=== PATIENT | female | born 1980 | race Caucasian/White ===

== ENCOUNTER → 2024-10-29 | Day surgery (SDC) | payer OTHER ==
[~2024-10-29] MED LIST: CEFDINIR300 MG PO; FENTANYL CITRATE/PF 100MCG/2 ML INJ ONE; IBUPROFEN200 MG PO; LIDOCAINE HCL 2% LOCAL INJ 5 ML SDV VIAL INJ ONE; MIDAZOLAM HCL 2 MG/2 ML VIAL ONE; OMEPRAZOLE40 MG PO; PROPOFOL IV EMULSION 10 MG/ML 20 ML VIAL ONE; PROPOFOL IV EMULSION 50 ML IV ONE; PYRIDIUM100 MG PO; TYLENOL WITH C1 EACH PO
[2024-10-29] MEDS: LACTATED RINGER'S 1,000 ML ONE (07:28)
[2024-10-29 10:15] VITALS: BP 121/85; PULSE 84; RESP 16; TEMP 97.1; O2SAT 100
== END | disposition home or self-care (01) ==
LOC: OR 07:05
PROVIDERS: ATTEND Internal Medicine Gastroenterology
DX: K29.70 Gastritis, unspecified, without bleeding (principal); Z86.0100 Personal history of colon polyps, unspecified; K20.90 Esophagitis, unspecified without bleeding; K44.9 Diaphragmatic hernia without obstruction or gangrene; K42.9 Umbilical hernia without obstruction or gangrene; R16.0 Hepatomegaly, not elsewhere classified; K64.8 Other hemorrhoids; G47.33 Obstructive sleep apnea (adult) (pediatric); E66.01 Morbid (severe) obesity due to excess calories; Z79.1 Long term (current) use of non-steroidal anti-inflammatories (NSAID)
CPT/HCPCS: 43239; 45378; J2003; J2250; J2470; J2704 ×2; J3010; J7121